=== PATIENT | female | born 1970 ===

== ENCOUNTER 2018-08-22 02:58 | Observation (INO) | payer BC, MEDICAID, OTHER ==
[2018-08-22 03:04] VITALS: RESP 20
[2018-08-22] MEDS ORDERED: KETOROLAC TROMETHAMINE 30 MG/ML SOL IM ONE (03:27)
[2018-08-22] MEDS ORDERED: KETOROLAC TROMETHAMINE 30 MG/ML SOL ONE (03:31)
[2018-08-22] MEDS ORDERED: ONDANSETRON HCL 4 MG/2 ML SOL IV ONE (04:18)
[2018-08-22] MEDS ORDERED: MORPHINE SULFATE 10 MG/ML SOL IV PRN (04:19)
[2018-08-22] MEDS ORDERED: MORPHINE SULFATE 10 MG/ML SOL ONE (04:24)
[2018-08-22] MEDS ORDERED: ONDANSETRON HCL 4 MG/2 ML SOL ONE (04:34)
[2018-08-22] MEDS ORDERED: KETOROLAC TROMETHAMINE 30 MG/ML SOL IV PRN (04:47)
[2018-08-22] MEDS ORDERED: ONDANSETRON HCL 4 MG/2 ML SOL IV PRN (04:50)
[2018-08-22] MEDS: MORPHINE SULFATE 10 MG/ML SOL IV PRN ×2 (05:18→10:52)
[2018-08-22] MEDS ORDERED: CALCIUM CARBONATE 500 MG TAB PO SCH (09:00)
[2018-08-22] MEDS ORDERED: FERROUS GLUCONATE 324 MG TABLET PO SCH (09:15)
[2018-08-22 09:20] VITALS: BP 121/70; PULSE 85; TEMP 97.8; O2SAT 100
[2018-08-22] MEDS: GABAPENTIN 300 MG CAP PO SCH ×2 (09:35→14:37)
[2018-08-22] MEDS ORDERED: DIAZEPAM 5 MG TAB PO ONE (10:30)
== END 2018-08-22 15:30 | disposition home or self-care (01) | DRG 552 ==
LOC: ED 02:58 → ACUTE CARE 04:36
PROVIDERS: ADMIT Family Medicine; ATTEND Family Medicine
DX: M54.9 Dorsalgia, unspecified (principal); Y04.2XXA Assault by strike against or bumped into by another person, initial encounter; M51.26 Other intervertebral disc displacement, lumbar region
CPT/HCPCS: 72120; 72148; 72170; 96372; 96374; 96375; 99219; 99284; J1885; J2270; J2405; A9270-GY